=== PATIENT | female | born 1985 | race Caucasian/White ===

== ENCOUNTER 2021-05-10 21:22 | Emergency (ER) | payer OTHER ==
[~2021-05-10] VITALS: Ht 167 cm; Wt 70.0 kg
[2021-05-10] MEDS ORDERED: DIAZEPAM 5 MG (VALIUM) TABLET PO STA (21:42)
[2021-05-10] MEDS ORDERED: DIAZ5TAB49 PO ×2 (21:48→23:09)
--- NOTE | 2021-05-10 21:48 | ED Psychosocial ---
General Chief Complaint: Cardiac/General Problems Stated Complaint: ANXIETY,HEART PALPITATIONS Source: patient Exam Limitations: no limitations History of Present Illness Date Seen by Provider: May 10, 2021 Time Seen by Provider: 21:26 Initial Comments 35-year-old female presenting with complaints of heart palpitations and increased anxiety. She is visiting from [place] and is taking Zoloft 200 mg a day in addition to metoprolol 25 mg a day. She states that her regular doctor in [place] usually prescribes her some 10 mg Valium for her to take 5 to 10 mg a day as needed for anxiety. She had tried to call his office when she was having issues with anxiety and palpitations however she found out that he is out of the office for the holidays and vacation until May 20. She presents to the ED due to continued palpitations and anxiety. Here she denies any other complications or problems. She denies fever, chills, chest pain, headache, nausea, vomiting, pain with urination, abdominal pain. She states that she still has her Zoloft and metoprolol and takes that every day. Timing/Duration: week Severity: moderate Associated Symptoms: anxiety Allergies and Home Medications Allergies Coded Allergies: No Known Drug Allergies (Unverified , 05/10/21) Patient Home Medication List Home Medication List Reviewed: Yes Diazepam (Diazepam) 5 Mg Tablet, 5 MG PO DAILY PRN for ANXIETY Prescribed by: VENUS BATEMAN on 05/10/212147 Review of Systems Constitutional: No chills, No dizziness, No fever EENTM: no symptoms reported Respiratory: no symptoms reported Cardiovascular: palpitations Gastrointestinal: no symptoms reported Genitourinary: no symptoms reported LMP: Apr 26, 2021 Musculoskeletal: no symptoms reported Skin: no symptoms reported Psychiatric/Neurological: Anxiety Past Odykbso-[id number]-Eyrsfm Hx Patient Social History Tobacco Use?: No Use of E-Cig and/or Vaping dev: No Substance use?: No Alcohol Use?: No Immunizations Up To Date First/Initial COVID19 Vaccinat: December 2020 [employer] Second COVID19 Vaccination Zen: January 2021 [employer] Past Medical History Surgery/Hospitalization HX: Anxiety, Palpitations Surgeries: Yes Tonsillectomy Respiratory: No Cardiac: Yes Palpitations Neurological: No Reproductive Disorders: No Genitourinary: No Gastrointestinal: No Musculoskeletal: No Endocrine: No HEENT: No Psychosocial: Yes Anxiety Physical Exam Vital Signs - First Documented 05/10/21 21:30 Temp 35.5 Pulse 90 Resp 17 B/P (MAP) 154/91 (112) Pulse Ox 99 O2 Delivery Room Air Capillary Refill : Height, Weight, BMI Height: '" Weight: lbs. oz. kg; BMI Method: General Appearance: no apparent distress, other (appears anxious) HEENT: PERRL/EOMI, pharynx normal Neck: non-tender, full range of motion, supple, normal inspection Respiratory: chest non-tender, lungs clear, normal breath sounds, no respiratory distress, no accessory muscle use Cardiovascular: normal peripheral pulses, regular rate, rhythm, no gallop, no JVD, no murmur Gastrointestinal: normal bowel sounds, non tender, soft, no pulsatile mass Neurologic/Psychiatric: alert, oriented x 3, other (anxious) Appearance/Memory: appropriate appearance, appropriate insight, neat Behavior/Eye Contact: cooperative, good eye contact, normal speech Thoughts/Hallucinations: normal thought pattern, no apparent hallucination Skin: normal color, warm/dry Progress/Results/Core Measures Results/Orders My Orders Orders - VENUS BATEMAN MD Ekg Tracing (05/10/21 21:28) Diazepam Tablet (Valium Tablet) (05/10/21 21:42) Vital Signs/I&O 05/10/21 05/10/21 21:30 21:54 Temp 35.5 35.5 Pulse 90 90 Resp 17 17 B/P (MAP) 154/91 (112) 154/91 Pulse Ox 99 99 O2 Delivery Room Air Room Air Progress Progress Note : Progress Note Electrocardiogram does not demonstrate any acute arrhythmia or PVCs. Review of [employer] shows that [place] does participate in the prescription monitoring program but when typing in her information it did not pull out any prescriptions for her. We will give a single 5 mg dose of diazepam here in send a prescription with her for 5 mg once a day as needed for anxiety number 5 pills. Stressed importance of following up with her regular provider in [place]. Continue on her regular medications and stay well-hydrated Initial ECG Impression Date: May 10, 2021 Initial ECG Impression Time: 21:33 Initial ECG Rate: 72 Initial ECG Rhythm: Normal Sinus Initial ECG Comparisson: No Previous ECG Available Comment Normal sinus rhythm with a heart rate of 72 bpm. DC interval [address] elevation. QT interval 372 ms with a QTc interval 408 ms. There is no prior tracing available for comparison. Departure Impression Primary Impression: Anxiety Additional Impression: Palpitations with regular cardiac rhythm Disposition: HOME, SELF-CARE Condition: Stable Departure-Patient Inst. Decision time for Depature: 21:44 [place] [facility] [place]ructions: Anxiety, Adult ED, Palpitations ED, Tips to Help You [place] in Uncertain Times Add. Discharge Instructions: Make sure you are staying well hydrated and drinking plenty of water. Follow up with your primary provider in [place] for continued concerns/problems with anxiety and palpitations All discharge instructions reviewed with patient and/or family. Voiced understanding. Scripts Diazepam (Diazepam) 5 Mg Tablet 5 MG PO DAILY PRN for ANXIETY for 5 Days, #5 TAB 0 Refills Prov: VENUS BATEMAN MD 05/10/21 VENUS BATEMAN MD May 10, 2021 21:48
[2021-05-10 21:54] VITALS: BP 154/91
== END 2021-05-10 21:54 | disposition home or self-care (01) ==
LOC: ER FS 21:26
DX: F41.9 Anxiety disorder, unspecified (principal); Z79.899 Other long term (current) drug therapy